=== PATIENT | male | born 1960 | race Caucasian/White ===

== ENCOUNTER 2016-08-12 13:57 | Inpatient (IN) | payer OTHER ==
[~2016-08-12] VITALS: Ht 182.9 cm; Wt 72.0 kg
[~2016-08-12 13:57] MED LIST: AMLODIPINE; ASPIRIN; CARV6.25 PO; COREG; LASIX; LISI10TA2 PO; LOSARTAN; LOVASTATIN; METF500T4 PO; METFORMIN
--- NOTE | 2016-08-12 14:15 | ERA ---
ER Documentation Chief Complaint Date/Time DATE: 08/12/16 TIME: 14:12 Chief Complaint Shortness of breath HPI The patient is a 56-year-old male, presenting to the ER because of acute on chronic shortness of breath for the last couple days. He complains of dyspnea on exertion. He complains of chronic left-sided chest pain 6 months after cardiac bypass surgery, however it is worse for the last couple of days. He denies fever, chills, cough, chest pain with vomiting or diaphoresis, denies abdominal pain, vomiting, dysuria, diarrhea. He complains of numbness of the left middle and fourth finger for 1 day. He smokes half a pack a day, denies drinking Past medical history: Diabetes mellitus, hypertension, dyslipidemia, CAD, cardiomyopathy, constipation Past surgical history: CABG, polypectomy ROS All systems reviewed and are negative except as per history of present illness. Medications Home Meds Reported Medications Multivitamins* (Theragran*) 1 Tab Tab, 1 TAB PO DAILY, TAB 08/12/16 Aspirin* (Aspirin* Chew) 81 Mg Tab.chew, 81 MG PO DAILY, TAB.CHEW 08/12/16 Broadbent-3 Acid Ethyl Esters (Lovaza) 1 Gm Capsule, 2 GM PO BID, CAP 08/12/16 Escitalopram Oxalate* (Escitalopram Oxalate*) 20 Mg Tablet, 20 MG PO DAILY, #30 TAB 08/12/16 Amlodipine Besylate* (Norvasc*) 5 Mg Tablet, 5 MG PO DAILY, TAB 08/12/16 Furosemide* (Furosemide*) 40 Mg Tablet, 40 MG PO DAILY, TAB 08/12/16 Metformin* (Glucophage*) 850 Mg Tablet, 850 MG PO WITH BREAKFAST DINNE, #30 TAB 08/12/16 Lovastatin* (Altoprev*) 40 Mg Tab.sr.24h, 40 MG PO HS, TAB 08/12/16 Losartan Potassium* (Losartan Potassium*) 50 Mg Tablet, 50 MG PO DAILY, TAB 08/12/16 Carvedilol* (Carvedilol*) 6.25 Mg Tablet, 6.25 MG PO DAILY, #60 TAB 08/12/16 Hydralazine Hcl* (Hydralazine Hcl*) 100 Mg Tablet, 100 MG PO Q8, #90 TAB 08/12/16 Clonidine Hcl* (Clonidine Hcl*) 0.1 Mg Tab, PO BID, TAB 08/12/16 Discontinued Reported Medications [Metformin] No Conflict Check 09/11/15 [Coreg] No Conflict Check 09/11/15 [Lovastatin] No Conflict Check 09/11/15 [Aspirin] No Conflict Check 09/11/15 [Lasix] No Conflict Check 09/11/15 [Losartan] No Conflict Check 09/11/15 [Amlodipine] No Conflict Check 09/11/15 Discontinued Scripts Metformin Hcl* (Metformin Hcl*) 500 Mg Tablet, 500 MG PO AC BREAKFAST DINNER, # 60 TAB Prov:ALEXANDRA TRIPATHI 06/22/14 Lisinopril* (Lisinopril*) 10 Mg Tablet, 10 MG PO DAILY, #30 TAB Prov:ALEXANDRA TRIPATHI 06/22/14 Carvedilol* (Coreg*) 6.25 Mg Tablet, 6.25 MG PO BID, #60 TAB Prov:ALEXANDRA TRIPATHI 06/22/14 Allergies Allergies: Coded Allergies: No Known Allergy (Unverified , 06/26/14) PMhx/Soc History of Surgery: Yes (CABG) Anesthesia Reaction: No Hx Neurological Disorder: No Hx Respiratory Disorders: Yes (CHRONIC BRONCHITIS) Hx Cardiac Disorders: Yes (CAD, HYPERLIPIDEMIA, CARDIOMYOPATHY, HTN) Hx Psychiatric Problems: No Hx Miscellaneous Medical Probl: No Hx Alcohol Use: No Hx Substance Use: No Hx Tobacco Use: Yes Physical Exam Vitals Vital Signs Date Time Temp Pulse Resp B/P Pulse Ox O2 Delivery O2 Flow Rate FiO2 08/12/16 16:39 73 20 188/77 100 Room Air 08/12/16 14:14 72 20 179/79 100 Room Air 08/12/16 14:06 98.0 74 20 200/89 98 Physical Exam Const: No acute distress. Head: Atraumatic. Eyes: Normal Conjunctiva. ENT: Normal External Ears, Nose and Mouth. Neck: Full range of motion. No meningismus. Resp: Bibasilar crackle Cardio: Regular rate and rhythm, no murmurs. Abd: Soft, non distended, normal bowel sounds, non tender. Skin: No petechiae or rashes. Back: No midline or flank tenderness. Ext: Bilateral lower extremity edema, no calf tenderness Neur: Awake and alert. No focal deficit Psych: Normal Mood and Affect. Result Diagram: 08/12/16 1432 08/12/16 1432 Results 24 hrs Laboratory Tests Test 08/12/16 14:32 White Blood Count 8.610^3/ul Red Blood Count 4.3210^6/ul Hemoglobin 11.2g/dl Hematocrit 34.3% Mean Corpuscular Volume 79.4fl Mean Corpuscular Hemoglobin 25.9pg Mean Corpuscular Hemoglobin Concent 32.7g/dl Red Cell Distribution Width 14.6% Platelet Count 90486^3/UL Mean Platelet Volume 11.7fl Neutrophils % 62.5% Lymphocytes % 23.3% Monocytes % 10.7% Eosinophils % 2.7% Basophils % 0.7% Nucleated Red Blood Cells % 0.0/100WBC Neutrophils # 5.410^3/ul Lymphocytes # 2.010^3/ul Monocytes # 0.910^3/ul Eosinophils # 0.210^3/ul Basophils # 0.110^3/ul Nucleated Red Blood Cells # 0.010^3/ul Prothrombin Time 12.1Sec Prothrombin Time Ratio 0.9 INR International Normalized Ratio 0.90 Activated Partial Thromboplast Time 31.8Sec Sodium Level 136mmol/L Potassium Level 4.6mmol/L Chloride Level 106mmol/L Carbon Dioxide Level 25mmol/L Anion Gap 10 Blood Urea Nitrogen 16mg/dl Creatinine 1.46mg/dl Glucose Level 143mg/dl Calcium Level 8.9mg/dl Total Bilirubin 0.4mg/dl Direct Bilirubin 0.00mg/dl Indirect Bilirubin 0.4mg/dl Aspartate Amino Transf (AST/SGOT) 17IU/L Alanine Aminotransferase (ALT/SGPT) 28IU/L Alkaline Phosphatase 90IU/L Troponin I 0.016ng/ml B-Type Natriuretic Peptide 2020PG/ML Total Protein 7.4g/dl Albumin 3.7g/dl Globulin 3.70g/dl Albumin/Globulin Ratio 1.00 Lipase 105U/L Current Medications Medications (Trade) Dose Ordered Sig/Myra Route PRN Reason Start Time Stop Time Status Last Admin Dose Admin Aspirin (Aspirin) 325 mg ONCE ONCE PO 08/12/16 15:00 08/12/16 15:01 DC Nitroglycerin (Nitroglycerin 2% Oint) 1 inch ONCE ONCE TD 08/12/16 15:00 08/12/16 15:01 DC 08/12/16 14:41 Furosemide (Lasix) 40 mg ONCE ONCE IV 08/12/16 16:00 08/12/16 16:01 DC 08/12/16 15:55 Procedures/MDM [place] [id number] Radiology Main Line: [phone] DIAGNOSTIC IMAGING REPORT Patient: PILLO GIMENEZ : 1960 Age: 56 Sex: M MR #: [id number] DOS: 08/12/16 1435 Ordering MD: PIERO HAUSER MD Location: E/R Room/Bed: PROCEDURE: XR Chest. CLINICAL INDICATION: Chest pain TECHNIQUE: Single frontal view of the chest was obtained COMPARISON: 06/28/14 FINDINGS: The heart is enlarged. The thoracic aorta is calcified. The patient is status post CABG. The lungs are clear. There is no pleural effusion or pneumothorax. RPTAT: AA IMPRESSION: Moderate cardiomegaly. Calcified aorta consistent with atherosclerotic disease. .Oj Roblero MD, MD Date Time Electronically viewed and signed by .Oj Roblero MD, MD on 08/12/2016 14: 54 .S/ CC: PIERO HAUSER MD EKG: Read by emergency physician Rate/Rhythm: Normal Sinus Rhythm 75 beats/min QRS, ST, T-waves: No ST elevation, no T inversion, lateral T abnormality Impression: Abnormal EKG MEDICAL MAKING DECISION: The patient is a 56-year-old male, presenting with acute CHF exacerbation, acute on chronic chest pain of unclear etiology. He was treated with Lasix 40 mg IV for acute CHF exacerbation, aspirin 325 mg p.o. and 1 inch of nitroglycerin ointment to the chest wall with good response. The differential diagnoses for acute on chronic chest pain considered include but are not limited to acute coronary syndrome, acute myocardial infarction, pericarditis, pulmonary embolism, aortic dissection, pneumonia, pleural effusion , pneumothorax, GERD, chest wall pain. The differential diagnoses for acute dyspnea considered include but are not limited to asthma, COPD, pneumonia, pulmonary embolus, pleural effusion, congestive heart failure. Departure Diagnosis: Primary Impression: CHF (congestive heart failure) Additional Impressions: Chest pain Anemia Condition: Stable Comments I discussed the findings with the patient. I discussed the patient with the on- call hospitalist Dr. Wright who was made aware of the lab, the treatment, the patient condition. The patient is admitted to telemetry at 4:10 PM PIERO HAUSER MD August 12, 2016 14:15
[2016-08-12 14:41] LABS: ADD SCAN DIFF NO
[2016-08-12 14:46] LABS: BASOPHIL # 0.1 10^3/ul (0.0-0.1); BASOPHILS % 0.7 % (0.0-2.0); EOSINOPHILS # 0.2 10^3/ul (0.0-0.5); EOSINOPHILS % 2.7 % (0.0-7.0); HEMATOCRIT 34.3 % (42.0-52.0); HEMOGLOBIN 11.2 g/dl (14.0-18.0); LYMPHOCYTES % 23.3 % (15.0-51.0); MEAN CORPUSCULAR HEMOGLOBIN 25.9 pg (29.0-33.0); MEAN CORPUSCULAR HGB CONC 32.7 g/dl (32.0-37.0); MEAN CORPUSCULAR VOLUME 79.4 fl (82.0-101.0); MEAN PLATELET VOLUME 11.7 fl (7.4-10.4); MONOCYTE # 0.9 10^3/ul (0.3-0.9); MONOCYTES % 10.7 % (0.0-11.0); NEUTROPHIL # 5.4 10^3/ul (1.6-7.5); NEUTROPHILS % 62.5 % (39.0-77.0); PLATELET COUNT 251 10^3/UL (140-415); RED BLOOD COUNT 4.32 10^6/ul (4.70-6.10); RED CELL DISTRIBUTION WIDTH 14.6 % (11.5-14.5); WHITE BLOOD COUNT 8.6 10^3/ul (4.8-10.8)
[2016-08-12] MEDS ORDERED: HYDR100T7 PO (14:47)
[2016-08-12] MEDS ORDERED: CLON-379 PO (14:47)
[2016-08-12] MEDS ORDERED: CARV6.2579 PO (14:48)
[2016-08-12] MEDS ORDERED: LOSA50TA6 PO (14:48)
[2016-08-12] MEDS ORDERED: LOVA40TA64 PO (14:49)
[2016-08-12] MEDS ORDERED: METF-480 PO (14:49)
[2016-08-12] MEDS ORDERED: FURO40TA4 PO (14:49)
[2016-08-12] MEDS ORDERED: AMLO5TAB4 PO (14:50)
[2016-08-12] MEDS ORDERED: OMEG1CAP2 PO (14:51)
[2016-08-12] MEDS ORDERED: ESCI20TA38 PO (14:51)
[2016-08-12] MEDS ORDERED: MULTI PO (14:52)
[2016-08-12] MEDS ORDERED: ASPI81TA3 PO (14:52)
--- NOTE | 2016-08-12 14:54 | RADRPT ---
PROCEDURE: XR Chest. CLINICAL INDICATION: Chest pain TECHNIQUE: Single frontal view of the chest was obtained COMPARISON: 06/28/14 FINDINGS: The heart is enlarged. The thoracic aorta is calcified. The patient is status post CABG. The lungs are clear. There is no pleural effusion or pneumothorax. RPTAT: AA IMPRESSION: Moderate cardiomegaly. Calcified aorta consistent with atherosclerotic disease. .Oj Roblero MD, MD Date Time Electronically viewed and signed by .Oj Roblero MD, on 08/12/2016 14:54 .S/
[2016-08-12 15:00] LABS: INR 0.9; PROTIME 12.1 Sec (12.2-14.2); PT RATIO 0.9
[2016-08-12] MEDS ORDERED: ASPIRIN 325 MG TAB PO ONE (15:00)
[2016-08-12] MEDS ORDERED: NITROGLYCERIN 2% 1 GM OINT PKT TD ONE (15:00)
[2016-08-12 15:01] LABS: PARTIAL THROMBOPLASTIN TIME 31.8 Sec (25.0-35.0)
[2016-08-12 15:03] LABS: ALBUMIN 3.7 g/dl (3.3-4.9); BILIRUBIN,INDIRECT 0.4 mg/dl (0-1.1); BILIRUBIN,TOTAL 0.4 mg/dl (0.2-1.3); CALCIUM 8.9 mg/dl (8.4-10.2); CREATININE 1.46 mg/dl (0.61-1.24); POTASSIUM 4.6 mmol/L (3.5-5.1); TOTAL PROTEIN 7.4 g/dl (6.1-8.1)
[2016-08-12 15:14] LABS: TROPONIN-I 0.016 ng/ml (0.00-0.12)
[2016-08-12] MEDS ORDERED: FUROSEMIDE 40 MG INJ IV ONE (16:00)
[2016-08-12] MEDS ORDERED: NITROGLYCERIN (SL) 0.4 MG TAB SL PRN (18:30)
[2016-08-12] MEDS ORDERED: ACETAMINOPHEN 325 MG TAB PO PRN (18:30)
[2016-08-12] MEDS ORDERED: DOCUSATE SODIUM 100 MG CAP PO PRN (18:30)
[2016-08-12] MEDS ORDERED: HYDROCODONE/APAP (5/325) TAB PO PRN (18:30)
[2016-08-12] MEDS ORDERED: MAGNESIUM HYDROXIDE 30ML CUP PO PRN (18:30)
[2016-08-12] MEDS ORDERED: ALBUTEROL/IPRATROPIUM (NEB) 3 ML AMP HHN PRN (18:30)
[2016-08-12] MEDS ORDERED: LORAZEPAM 2 MG INJ IV PRN (18:30)
[2016-08-12] MEDS ORDERED: NA PHOSPHATE/BIPHOS 133 ML ENEMA PR PRN (18:30)
[2016-08-12] MEDS ORDERED: morphine 2 MG INJ IV PRN (18:30)
[2016-08-12] MEDS ORDERED: hydrALAzine 20 MG INJ IV PRN (18:30)
[2016-08-12] MEDS ORDERED: NACL 0.9% 3 ML SYG IV SCH (18:30)
[2016-08-12] MEDS ORDERED: ONDANSETRON 4 MG INJ IV PRN (18:30)
[2016-08-12] MEDS ORDERED: GLUCOSE GEL 15 GRAM TUBE PO PRN ×2 (19:00)
[2016-08-12] MEDS ORDERED: DEXTROSE 50% 50 ML SYRINGE IV PRN ×2 (19:00)
[2016-08-12] MEDS ORDERED: GLUCOSE GEL 15 GRAM TUBE BUCCAL PRN (19:00)
[2016-08-12] MEDS ORDERED: GLUCAGON 1 MG INJ IM PRN (19:00)
[2016-08-12] MEDS: LEVOFLOXACIN 750MG/D5W (PMX) 150 ML IVPB SCH (19:27)
[2016-08-12] MEDS: NICOTINE (14 MG/24 HR) PATCH TRANSDERM SCH (19:28)
[2016-08-12] MEDS: FISH OIL 1,000 MG CAP PO SCH (20:20)
[2016-08-12] MEDS: FAMOTIDINE 20 MG TAB PO SCH (20:21)
[2016-08-12 20:27] VITALS: PULSE 79
[2016-08-12] MEDS: HEPARIN 5,000 UNIT/0.5 ML VIAL SC SCH (20:28)
--- NOTE | 2016-08-12 20:29 | HP ---
DATE OF ADMISSION: 08/12/2016 CHIEF COMPLAINT: Chest pain. HISTORY OF PRESENT ILLNESS: A 56-year-old male with a past medical history of coronary artery bypas s grafting 2 years ago, coronary artery disease, cardiomyopathy, constipation, essential hypertensio n, type 2 diabetes, high cholesterol who has been having chest pain. It's actually been going on, joan adam says, for the last few months but getting progressively worse over the last 2 days. He is also couch ving dyspnea on exertion. He has had shortness of breath symptoms. No fevers or chills. No nausea , vomiting. No upper, lower GI bleeding. No dysuria. No headaches or dizziness. No productive co ugh. He has been having left hand numbness, however, for the last 1 day. He still smokes half a pa ck of cigarettes a day. He has been doing that for the last 30 years. When he came to the ER today , he was found with elevated BNP level up to around 2000 range, and his chest x-ray did show signs o f vascular congestion, and he did require BiPAP briefly in the ER as well today. The patient says joan adam has been compliant with his medications. He says he was at [facility] [address] pain. He stayed there for 1-1/2 days. He apparently had some kind of arrhythmia at that time an d was transferred to the ICU. They recommended left heart catheterization, but the patient left AMA at that time. PAST MEDICAL HISTORY: As stated above. ALLERGIES: NO KNOWN DRUG ALLERGIES. HOME MEDICINES: 1. Norvasc 5 mg daily. 2. Coreg 6.25 mg daily. 3. Clonidine 0.1 mg. 4. Hydralazine 100 mg q.8 hours. 5. Losartan 50 mg daily. 6. Lovastatin 40 mg at bedtime. 7. Lovaza 2 grams p.o. b.i.d. 8. Aspirin 81 mg daily. 9. Lexapro 20 mg daily. 10. Lasix 40 mg daily. 11. Metformin 850 mg b.i.d. 12. Multivitamin 1 tablet daily. PAST SURGICAL HISTORY: Again, he had bypass surgery in the past and also had some kind of polypecto my in the past. SOCIAL HISTORY: Again, he smokes half pack of cigarettes a day for the last 30 years. Denies any a lcohol use or IV drug abuse. FAMILY HISTORY: Noncontributory. PHYSICAL EXAMINATION: VITAL SIGNS: T-max 98.0, pulse 72, respirations 20, blood pressure is 179 to 200 systolic over 79 t o 89 diastolic, saturating at 100% on room air. GENERAL: The patient lying in bed, appears somewhat lethargic but alert, answering questions. HEENT: Pupils equal, round, react to light. Extraocular muscles intact. NECK: Supple. No thyromegaly. LUNGS: Bibasilar crackles heard at the bases bilaterally. CARDIOVASCULAR: S1, S2 heard. No rubs or gallops. ABDOMEN: Soft, nontender, nondistended. Normal bowel sounds. No rebound or guarding. MUSCULOSKELETAL: 1+ pitting edema, bilateral lower extremities to the mid calves. NEUROLOGIC: No focal deficits. LABORATORIES: CBC is normal. Comprehensive metabolic panel is normal except a creatinine is 1.46. BNP is 2020. Lipase is normal. Coagulation studies are normal. IMAGING: Chest x-ray again shows moderate cardiomegaly, calcified aorta consistent with atheroscler otic disease. ASSESSMENT AND PLAN: A 56-year-old male coming in with chest pain symptoms, shortness of breath, si gns of rule out acute coronary syndrome plus CHF exacerbation. 1. Shortness of breath and chest pain. Again, admit the patient to telemetry floor, rule him out f or acute coronary syndrome. Check his troponins q.6 hours x3. Aspirin, morphine, oxygen, nitrates. Check TSH, A1c, lipid panel. Check 2D echocardiogram as well. Get cardiology consult given his h istory of coronary artery disease and CABG in the past. Continue low-dose beta silvia for now, IV Lasix. Elevate head of the bed greater than 30 degrees. Monitor ins and outs for CHF exacerbation. 2. Type 2 diabetes. Check A1c, put him on sliding scale insulin. 3. Smoking history. Put him on nicotine patch, pet adoption counselor regarding tobacco cessation. 4. Essential hypertension. See #1. 5. Gastrointestinal prophylaxis. H2 silvia. 6. Deep venous thrombosis prophylaxis. Heparin subcutaneously. Dictated By: CHRISTINA SAUL/RICH Conf#: [id number] DID#: [id number]
[2016-08-12 20:45] LABS: CK-MB 0.81 ng/ml (0.0-2.4); TROPONIN-I 0.017 ng/ml (0.00-0.12)
[2016-08-12 21:00] VITALS: Ht 182.9 cm; Wt 72.0 kg
[2016-08-12] MEDS ORDERED: INSULIN ASPART [NOVOLOG] 3 ML PEN SC SCH (21:00)
[2016-08-12] MEDS ORDERED: ATORVASTATIN 10 MG TAB PO SCH (21:00)
[2016-08-12 23:54] VITALS: BP 139/63; RESP 19
[2016-08-13] VITALS (12 sets, daily range): BP systolic 122–199; BP diastolic 59–92; PULSE 67–89; RESP 18–20
[2016-08-13 01:52] LABS: TROPONIN-I 0.021 ng/ml (0.00-0.12)
[2016-08-13 01:59] LABS: CK-MB 0.79 ng/ml (0.0-2.4)
[2016-08-13 03:36] LABS: CK-MB 0.7 ng/ml (0.0-2.4)
[2016-08-13 03:39] LABS: TROPONIN-I 0.021 ng/ml (0.00-0.12)
[2016-08-13] MEDS: INSULIN ASPART [NOVOLOG] 3 ML PEN SC SCH ×4 (05:40→23:28)
[2016-08-13 07:59] LABS: ADD SCAN DIFF NO
[2016-08-13 08:03] LABS: CHOL/HDL RATIO 7.7 RATIO
[2016-08-13] MEDS: MULTIVITAMINS THERAPEUTIC TAB PO SCH (08:23)
[2016-08-13] MEDS: ESCITALOPRAM 10 MG TAB PO SCH (08:23)
[2016-08-13] MEDS: FAMOTIDINE 20 MG TAB PO SCH ×2 (08:23→20:02)
[2016-08-13] MEDS: ASPIRIN (EC) 325 MG TAB PO SCH (08:23)
[2016-08-13] MEDS: FISH OIL 1,000 MG CAP PO SCH ×2 (08:23→20:02)
[2016-08-13] MEDS: NICOTINE (14 MG/24 HR) PATCH TRANSDERM SCH (08:24)
[2016-08-13] MEDS: HEPARIN 5,000 UNIT/0.5 ML VIAL SC SCH ×2 (08:25→20:13)
[2016-08-13 08:32] LABS: THYROID STIMULATING HORMONE 1.44 MIU/L (0.465-4.680)
[2016-08-13 08:37] LABS: BASOPHIL # 0.1 10^3/ul (0.0-0.1); BASOPHILS % 0.7 % (0.0-2.0); EOSINOPHILS # 0.3 10^3/ul (0.0-0.5); EOSINOPHILS % 3.6 % (0.0-7.0); HEMATOCRIT 32.9 % (42.0-52.0); HEMOGLOBIN 10.7 g/dl (14.0-18.0); LYMPHOCYTES # 2.3 10^3/ul (0.8-2.9); LYMPHOCYTES % 25.6 % (15.0-51.0); MEAN CORPUSCULAR HEMOGLOBIN 26.1 pg (29.0-33.0); MEAN CORPUSCULAR HGB CONC 32.5 g/dl (32.0-37.0); MEAN CORPUSCULAR VOLUME 80.2 fl (82.0-101.0); MEAN PLATELET VOLUME 12.5 fl (7.4-10.4); MONOCYTES % 11.3 % (0.0-11.0); NEUTROPHIL # 5.2 10^3/ul (1.6-7.5); NEUTROPHILS % 58.6 % (39.0-77.0); PLATELET COUNT 228 10^3/UL (140-415); RED CELL DISTRIBUTION WIDTH 14.6 % (11.5-14.5); WHITE BLOOD COUNT 8.8 10^3/ul (4.8-10.8)
[2016-08-13] MEDS ORDERED: FUROSEMIDE 40 MG INJ IV SCH (09:00)
[2016-08-13 09:52] LABS: POTASSIUM 3.9 mmol/L (3.5-5.1)
[2016-08-13 09:55] LABS: CREATININE 1.57 mg/dl (0.61-1.24)
[2016-08-13 09:56] LABS: CALCIUM 8.6 mg/dl (8.4-10.2); MAGNESIUM 1.9 mg/dl (1.7-2.5); PHOSPHORUS 4.1 mg/dl (2.5-4.9)
--- NOTE | 2016-08-13 12:28 | PN ---
Date/Time of Note Date/Time of Note DATE: 08/13/16 TIME: 12:26 Assessment/Plan VTE Prophylaxis VTE Prophylaxis Intervention: heparin Lines/Catheters IV [facility] Urinary Cath still in place: No Assessment/Plan Chief Complaint/Hosp Course ASSESSMENT AND PLAN: 56-year-old male coming in with chest pain symptoms, shortness of breath, signs of rule out acute coronary syndrome plus CHF exacerbation. 1. Shortness of breath and chest pain - pt with Hx of CABG - Again rule him out for acute coronary syndrome. F/u troponins q.6 hours x3. - Aspirin, morphine, oxygen, nitrates. f/u TSH, A1c, lipid panel. - f/u echocardiogram as well. - f/u cardiology consult given his history of coronary artery disease and CABG in the past. - Continue low-dose beta silvia for now, IV Lasix. - Elevate head of the bed greater than 30 degrees. - Monitor ins and outs 2. Type 2 diabetes - f/u A1c, sliding scale insulin. 3. 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 4. Essential hypertension. See #1. 5. Gastrointestinal prophylaxis. H2 silvia. 6. Deep venous thrombosis prophylaxis. Heparin subcutaneously. Problems: Subjective 24 Hr Interval Summary Free Text/Dictation Pt has less cp, awaiting CV consult. Exam/Review of Systems Vital Signs Vitals Vital Signs Date Time Temp Pulse Resp B/P Pulse Ox O2 Delivery O2 Flow Rate FiO2 08/13/16 11:27 98.0 71 20 175/87 93 08/13/16 08:20 Nasal Cannula 2.0 Intake and Output 08/12/16 08/12/16 08/13/16 15:00 23:00 07:00 Intake Total 150 ml Output Total 450 ml Balance -300 ml Exam GENERAL: The patient lying in bed, appears somewhat lethargic but alert, answering questions. HEENT: Pupils equal, round, react to light. Extraocular muscles intact. NECK: Supple. No thyromegaly. LUNGS: Bibasilar crackles heard at the bases bilaterally. CARDIOVASCULAR: S1, S2 heard. No rubs or gallops. ABDOMEN: Soft, nontender, nondistended. Normal bowel sounds. No rebound or guarding. MUSCULOSKELETAL: 1+ pitting edema, bilateral lower extremities to the mid calves. NEUROLOGIC: No focal deficits. Results Result Diagram: 08/13/16 0645 08/13/16 0645 Results 24 hrs Laboratory Tests Test 08/12/16 14:32 08/12/16 19:55 08/12/16 20:29 08/13/16 00:30 White Blood Count 8.6 Red Blood Count 4.32 #L Hemoglobin 11.2 #L Hematocrit 34.3 #L Mean Corpuscular Volume 79.4 L Mean Corpuscular Hemoglobin 25.9 L Mean Corpuscular Hemoglobin Concent 32.7 Red Cell Distribution Width 14.6 H Platelet Count 251 Mean Platelet Volume 11.7 #H Neutrophils % 62.5 Lymphocytes % 23.3 Monocytes % 10.7 Eosinophils % 2.7 Basophils % 0.7 Nucleated Red Blood Cells % 0.0 Neutrophils # 5.4 Lymphocytes # 2.0 Monocytes # 0.9 Eosinophils # 0.2 Basophils # 0.1 Nucleated Red Blood Cells # 0.0 Prothrombin Time 12.1 L Prothrombin Time Ratio 0.9 INR International Normalized Ratio 0.90 Activated Partial Thromboplast Time 31.8 Sodium Level 136 Potassium Level 4.6 Chloride Level 106 Carbon Dioxide Level 25 Anion Gap 10 Blood Urea Nitrogen 16 Creatinine 1.46 H Glucose Level 143 Calcium Level 8.9 Total Bilirubin 0.4 Direct Bilirubin 0.00 Indirect Bilirubin 0.4 Aspartate Amino Transf (AST/SGOT) 17 Alanine Aminotransferase (ALT/SGPT) 28 Alkaline Phosphatase 90 Troponin I 0.016 0.017 0.021 B-Type Natriuretic Peptide 2020 H Total Protein 7.4 Albumin 3.7 Globulin 3.70 H Albumin/Globulin Ratio 1.00 Lipase 105 Free Thyroxine 1.10 Creatine Kinase 84 81 Creatine Kinase Index 1.0 1.0 Creatinine Kinase MB (Mass) 0.81 0.79 Bedside Glucose 248 H Test 08/13/16 02:48 08/13/16 05:38 08/13/16 06:45 08/13/16 11:48 Creatine Kinase 65 Creatine Kinase Index 1.1 Creatinine Kinase MB (Mass) 0.70 Troponin I 0.021 Bedside Glucose 114 158 White Blood Count 8.8 Red Blood Count 4.10 L Hemoglobin 10.7 L Hematocrit 32.9 L Mean Corpuscular Volume 80.2 L Mean Corpuscular Hemoglobin 26.1 L Mean Corpuscular Hemoglobin Concent 32.5 Red Cell Distribution Width 14.6 H Platelet Count 228 Mean Platelet Volume 12.5 H Neutrophils % 58.6 Lymphocytes % 25.6 Monocytes % 11.3 H Eosinophils % 3.6 Basophils % 0.7 Nucleated Red Blood Cells % 0.0 Neutrophils # 5.2 Lymphocytes # 2.3 Monocytes # 1.0 H Eosinophils # 0.3 Basophils # 0.1 Nucleated Red Blood Cells # 0.0 Sodium Level 138 Potassium Level 3.9 Chloride Level 106 Carbon Dioxide Level 21 Anion Gap 15 Blood Urea Nitrogen 21 H Creatinine 1.57 H Glucose Level 106 Hemoglobin A1c 7.6 H Calcium Level 8.6 Phosphorus Level 4.1 Magnesium Level 1.9 Triglycerides Level 173 H Cholesterol Level 248 H LDL Cholesterol, Calculated 181 HDL Cholesterol 32 Cholesterol/HDL Ratio 7.7 Thyroid Stimulating Hormone (TSH) 1.440 Medications Medications Current Medications Ondansetron HCl (Zofran Inj) 4 mg Q6H PRN IV NAUSEA AND/OR VOMITING; Start 08/12 at 18:30 Acetaminophen (Tylenol Tab) 650 mg Q6H PRN PO PAIN LEVEL 1-3 OR FEVER; Start at 18:30 Acetaminophen/ Hydrocodone Bitart ([place] (5/325)) 1 tab Q6H PRN PO MODERATE PAIN LEVEL 4-6; Start 08/12/16 at 18:30 Morphine Sulfate (morphine) 2 mg Q4H PRN IV SEVERE PAIN LEVEL 7-10 Last administered on 08/12/16 21:44; Admin Dose 2 MG; Start 08/12/16 at 18:30 Docusate Sodium (Colace) 100 mg Q12H PRN PO CONSTIPATION; Start 08/12/16 at 18: 30 Magnesium Hydroxide (Milk Of Mag) 30 ml DAILY PRN PO CONSTIPATION; Start at 18:30 Sodium Biphosphate/ Sodium Phosphate (Fleet Enema) 133 ml DAILY PRN OR CONSTIPATION; Start 08/12/16 at 18:30 Famotidine (Pepcid) 20 mg Q12 PO Last administered on 08/13/16 08:23; Admin Dose 20 MG; Start 08/12/16 at 21:00 Heparin Sodium (Porcine) (Heparin (5000 Units/0.5 ml)) 5,000 unit Q12 SC Last administered on 08/13/16 08:25; Admin Dose 5,000 UNIT; Start 08/12/16 at 21:00 Lorazepam 0.5 mg 0.5 mg Q6H PRN IV ANXIETY; Start 08/12/16 at 18:30 Levofloxacin/ Dextrose (Levaquin 750 Mg/ D5W 150 ml (Pmx)) 150 ml @ 100 mls/hr Q24H IVPB Last administered on 08/12/16 19:27; Admin Dose 100 MLS/HR; Start 08/12/16 at 20:00 Hydralazine HCl (Apresoline) 10 mg Q6H PRN IV ELEVATED BLOOD PRESSURE Last administered on 08/12/16 20:21; Admin Dose 10 MG; Start 08/12/16 at 18:30 Clonidine (Catapres) 0.1 mg Q6H PRN PO ELEVATED BLOOD PRESSURE Last administered on 08/13/16 12:01; Admin Dose 0.1 MG; Start 08/12/16 at 18:30 Nitroglycerin (Nitroglycerin (Sl Tab) 0.4 Mg) 1 tab Q5M PRN SL ANGINA; Start at 18:30 Aspirin (Ecotrin) 325 mg DAILY PO Last administered on 08/13/16 08:23; Admin Dose 325 MG; Start 08/13/16 at 09:00 Escitalopram Oxalate (Lexapro) 20 mg DAILY PO Last administered on 08/13/16 08 :23; Admin Dose 20 MG; Start 08/13/16 at 09:00 Multivitamins Therapeutic (Theragran) 1 tab DAILY PO Last administered on 08:23; Admin Dose 1 TAB; Start 08/13/16 at 09:00 Atorvastatin Calcium (Lipitor) 10 mg HS PO Last administered on 08/12/16 20:20 ; Admin Dose 10 MG; Start 08/12/16 at 21:00 Fish Oil (Fish Oil) 2,000 mg BID PO Last administered on 08/13/16 08:23; Admin Dose 2,000 MG; Start 08/12/16 at 21:00 Furosemide (Lasix) 40 mg DAILY IV Last administered on 08/13/16 08:24; Admin Dose 40 MG; Start 08/13/16 at 09:00 Carvedilol (Coreg) 3.125 mg BID PO Last administered on 08/13/16 08:24; Admin Dose 3.125 MG; Start 08/12/16 at 21:00 Miscellaneous Information 1 ea NOTE XX ; Start 08/12/16 at 19:00 Glucose (Glutose) 15 gm Q15M PRN PO DECREASED GLUCOSE; Start 08/12/16 at 19:00 Glucose (Glutose) 22.5 gm Q15M PRN PO DECREASED GLUCOSE; Start 08/12/16 at 19:00 Dextrose (D50w Syringe) 25 ml Q15M PRN IV DECREASED GLUCOSE; Start 08/12/16 at 19:00 Dextrose (D50w Syringe) 50 ml Q15M PRN IV DECREASED GLUCOSE; Start 08/12/16 at 19:00 Glucagon (Glucagen) 1 mg Q15M PRN IM DECREASED GLUCOSE; Start 08/12/16 at 19:00 Glucose (Glutose) 15 gm Q15M PRN BUCCAL DECREASED GLUCOSE; Start 08/12/16 at 19: 00 Nicotine (Nicoderm 14 Mg/ 24hr) 1 patch DAILY TRANSDERM Last administered on 08:24; Admin Dose 1 PATCH; Start 08/12/16 at 19:00 Insulin Aspart (Novolog Insulin Pen) NOVOLOG *MILD* ALGORI... Q6 SC Last administered on 08/13/16 12:04; Admin Dose 1 UNIT; Start 08/13/16 at 06:00 CHRISTINA DREW August 13, 2016 12:28
--- NOTE | 2016-08-13 13:29 | CONS ---
Date/Time of Note Date/Time of Note DATE: 08/13/16 TIME: 13:20 Assessment/Plan Assessment/Plan Additional Assessment/Plan Chest wall pain Left arm numbness Hypertension, uncontrolled Coronary artery disease with history of CABG Cardiomyopathy -Patient with multiple complaints including left axillary pain, unable to move his fingers on his left hand, hypertension and issues with his bowels. His chest pain appears like chest wall pain which has been ongoing since he had his CABG. Serial cardiac enzymes with no significant abnormalities. His blood pressure is currently uncontrolled, I would increase his Coreg, restart Norvasc twice daily. Continue aspirin and statin therapy. Echocardiogram is pending. Would consider neurology evaluation. Consultation Date/Type/Reason Admit Date/Time August 12, 2016 at 16:14 Type of Consultation: cv Reason for Consultation Arm numbness, chest pain, shortness of breath Hx of Present Illness This is a 56-year-old male with past medical history of coronary artery disease status post CABG, cardiomyopathy, hypertension who presents to the emergency room with multiple complaints. Patient complains of chest wall pain in the left axillary region. This is pain he has been having since he had bypass surgery. Pain is sharp at times and needlelike at other times. Pain is worse with lifting up his left arm. Patient cannot lie on his left side because of the pain. He also complains of hypertension every morning. His blood pressures above 200 every morning and it takes him over 1 hour to bring his blood pressure down. He tells any process foods increases his blood pressure, salad is the only food which helps his chest pain and elevated blood pressure. He complains of shortness of breath worse in the morning and improve as the day goes on. His activity has been very limited since he had his bypass surgery because of his chronic pain. He also complains now of numbness in his fourth and fifth finger. This began on Thursday. This is not associated with his chest wall discomfort. Because of the worsening numbness, he came to the emergency room for evaluation and care. His hand numbness has improved and currently localized only to his fifth finger. He denies any fevers or chills. He does complain of constipation going on for years. 12 point review of systems was performed with all pertinent positives and negatives mentioned above and all else is negative Past Medical History Medical History: congestive heart failure, coronary artery disease, high cholesterol, hypertension Past Surgical History Past Surgical Hx: coronary bypass surgery Family History Significant Family History: no pertinent family hx Social History Alcohol Use: none Smoking Status: Current every day smoker Other Social History Lives at home Exam/Review of Systems Vital Signs Vitals Vital Signs Date Time Temp Pulse Resp B/P Pulse Ox O2 Delivery O2 Flow Rate FiO2 08/13/16 12:12 74 08/13/16 11:27 98.0 20 175/87 93 08/13/16 08:20 Nasal Cannula 2.0 Intake and Output 08/12/16 08/12/16 08/13/16 14:59 22:59 06:59 Intake Total 150 ml Output Total 450 ml Balance -300 ml Exam No apparent distress, following commands Constitutional: alert, oriented Head: normocephalic Neck: supple Respiratory: other (Coarse breath sounds bilaterally, no wheezing) Cardiovascular: other (S1-S2 heard), regular rate and rhythm, systolic murmur Gastrointestinal: bowel sounds, non-tender, other (No guarding), soft Extremities: other (No edema or cyanosis) Results Result Diagram: 08/13/16 0645 08/13/16 0645 Results 24 hrs Laboratory Tests Test 08/12/16 14:32 08/12/16 19:55 08/12/16 20:29 08/13/16 00:30 White Blood Count 8.6 Red Blood Count 4.32 #L Hemoglobin 11.2 #L Hematocrit 34.3 #L Mean Corpuscular Volume 79.4 L Mean Corpuscular Hemoglobin 25.9 L Mean Corpuscular Hemoglobin Concent 32.7 Red Cell Distribution Width 14.6 H Platelet Count 251 Mean Platelet Volume 11.7 #H Neutrophils % 62.5 Lymphocytes % 23.3 Monocytes % 10.7 Eosinophils % 2.7 Basophils % 0.7 Nucleated Red Blood Cells % 0.0 Neutrophils # 5.4 Lymphocytes # 2.0 Monocytes # 0.9 Eosinophils # 0.2 Basophils # 0.1 Nucleated Red Blood Cells # 0.0 Prothrombin Time 12.1 L Prothrombin Time Ratio 0.9 INR International Normalized Ratio 0.90 Activated Partial Thromboplast Time 31.8 Sodium Level 136 Potassium Level 4.6 Chloride Level 106 Carbon Dioxide Level 25 Anion Gap 10 Blood Urea Nitrogen 16 Creatinine 1.46 H Glucose Level 143 Calcium Level 8.9 Total Bilirubin 0.4 Direct Bilirubin 0.00 Indirect Bilirubin 0.4 Aspartate Amino Transf (AST/SGOT) 17 Alanine Aminotransferase (ALT/SGPT) 28 Alkaline Phosphatase 90 Troponin I 0.016 0.017 0.021 B-Type Natriuretic Peptide 2020 H Total Protein 7.4 Albumin 3.7 Globulin 3.70 H Albumin/Globulin Ratio 1.00 Lipase 105 Free Thyroxine 1.10 Creatine Kinase 84 81 Creatine Kinase Index 1.0 1.0 Creatinine Kinase MB (Mass) 0.81 0.79 Bedside Glucose 248 H Test 08/13/16 02:48 08/13/16 05:38 08/13/16 06:45 08/13/16 11:48 Creatine Kinase 65 Creatine Kinase Index 1.1 Creatinine Kinase MB (Mass) 0.70 Troponin I 0.021 Bedside Glucose 114 158 White Blood Count 8.8 Red Blood Count 4.10 L Hemoglobin 10.7 L Hematocrit 32.9 L Mean Corpuscular Volume 80.2 L Mean Corpuscular Hemoglobin 26.1 L Mean Corpuscular Hemoglobin Concent 32.5 Red Cell Distribution Width 14.6 H Platelet Count 228 Mean Platelet Volume 12.5 H Neutrophils % 58.6 Lymphocytes % 25.6 Monocytes % 11.3 H Eosinophils % 3.6 Basophils % 0.7 Nucleated Red Blood Cells % 0.0 Neutrophils # 5.2 Lymphocytes # 2.3 Monocytes # 1.0 H Eosinophils # 0.3 Basophils # 0.1 Nucleated Red Blood Cells # 0.0 Sodium Level 138 Potassium Level 3.9 Chloride Level 106 Carbon Dioxide Level 21 Anion Gap 15 Blood Urea Nitrogen 21 H Creatinine 1.57 H Glucose Level 106 Hemoglobin A1c 7.6 H Calcium Level 8.6 Phosphorus Level 4.1 Magnesium Level 1.9 Triglycerides Level 173 H Cholesterol Level 248 H LDL Cholesterol, Calculated 181 HDL Cholesterol 32 Cholesterol/HDL Ratio 7.7 Thyroid Stimulating Hormone (TSH) 1.440 Medications Medications Current Medications Ondansetron HCl (Zofran Inj) 4 mg Q6H PRN IV NAUSEA AND/OR VOMITING; Start 08/12 at 18:30 Acetaminophen (Tylenol Tab) 650 mg Q6H PRN PO PAIN LEVEL 1-3 OR FEVER; Start at 18:30 Acetaminophen/ Hydrocodone Bitart ([place] (5/325)) 1 tab Q6H PRN PO MODERATE PAIN LEVEL 4-6; Start 08/12/16 at 18:30 Morphine Sulfate (morphine) 2 mg Q4H PRN IV SEVERE PAIN LEVEL 7-10 Last administered on 08/12/16 21:44; Admin Dose 2 MG; Start 08/12/16 at 18:30 Docusate Sodium (Colace) 100 mg Q12H PRN PO CONSTIPATION; Start 08/12/16 at 18: 30 Magnesium Hydroxide (Milk Of Mag) 30 ml DAILY PRN PO CONSTIPATION; Start at 18:30 Sodium Biphosphate/ Sodium Phosphate (Fleet Enema) 133 ml DAILY PRN [place] CONSTIPATION; Start 08/12/16 at 18:30 Famotidine (Pepcid) 20 mg Q12 PO Last administered on 08/13/16 08:23; Admin Dose 20 MG; Start 08/12/16 at 21:00 Heparin Sodium (Porcine) (Heparin (5000 Units/0.5 ml)) 5,000 unit Q12 SC Last administered on 08/13/16 08:25; Admin Dose 5,000 UNIT; Start 08/12/16 at 21:00 Lorazepam 0.5 mg 0.5 mg Q6H PRN IV ANXIETY; Start 08/12/16 at 18:30 Levofloxacin/ Dextrose (Levaquin 750 Mg/ D5W 150 ml (Pmx)) 150 ml @ 100 mls/hr Q24H IVPB Last administered on 08/12/16 19:27; Admin Dose 100 MLS/HR; Start 08/12/16 at 20:00 Hydralazine HCl (Apresoline) 10 mg Q6H PRN IV ELEVATED BLOOD PRESSURE Last administered on 08/12/16 20:21; Admin Dose 10 MG; Start 08/12/16 at 18:30 Clonidine (Catapres) 0.1 mg Q6H PRN PO ELEVATED BLOOD PRESSURE Last administered on 08/13/16 12:01; Admin Dose 0.1 MG; Start 08/12/16 at 18:30 Nitroglycerin (Nitroglycerin (Sl Tab) 0.4 Mg) 1 tab Q5M PRN SL ANGINA; Start at 18:30 Aspirin (Ecotrin) 325 mg DAILY PO Last administered on 08/13/16 08:23; Admin Dose 325 MG; Start 08/13/16 at 09:00 Escitalopram Oxalate (Lexapro) 20 mg DAILY PO Last administered on 08/13/16 08 :23; Admin Dose 20 MG; Start 08/13/16 at 09:00 Multivitamins Therapeutic (Theragran) 1 tab DAILY PO Last administered on 08:23; Admin Dose 1 TAB; Start 08/13/16 at 09:00 Atorvastatin Calcium (Lipitor) 10 mg HS PO Last administered on 08/12/16 20:20 ; Admin Dose 10 MG; Start 08/12/16 at 21:00 Fish Oil (Fish Oil) 2,000 mg BID PO Last administered on 08/13/16 08:23; Admin Dose 2,000 MG; Start 08/12/16 at 21:00 Furosemide (Lasix) 40 mg DAILY IV Last administered on 08/13/16 08:24; Admin Dose 40 MG; Start 08/13/16 at 09:00 Carvedilol (Coreg) 3.125 mg BID PO Last administered on 08/13/16 08:24; Admin Dose 3.125 MG; Start 08/12/16 at 21:00 Miscellaneous Information 1 ea NOTE XX ; Start 08/12/16 at 19:00 Glucose (Glutose) 15 gm Q15M PRN PO DECREASED GLUCOSE; Start 08/12/16 at 19:00 Glucose (Glutose) 22.5 gm Q15M PRN PO DECREASED GLUCOSE; Start 08/12/16 at 19:00 Dextrose (D50w Syringe) 25 ml Q15M PRN IV DECREASED GLUCOSE; Start 08/12/16 at 19:00 Dextrose (D50w Syringe) 50 ml Q15M PRN IV DECREASED GLUCOSE; Start 08/12/16 at 19:00 Glucagon (Glucagen) 1 mg Q15M PRN IM DECREASED GLUCOSE; Start 08/12/16 at 19:00 Glucose (Glutose) 15 gm Q15M PRN BUCCAL DECREASED GLUCOSE; Start 08/12/16 at 19: 00 Nicotine (Nicoderm 14 Mg/ 24hr) 1 patch DAILY TRANSDERM Last administered on 08:24; Admin Dose 1 PATCH; Start 08/12/16 at 19:00 Insulin Aspart (Novolog Insulin Pen) NOVOLOG *MILD* ALGORI... Q6 SC Last administered on 08/13/16 12:04; Admin Dose 1 UNIT; Start 08/13/16 at 06:00 Procedures Procedures ECG demonstrates sinus rhythm at 75 bpm, poor R-wave progression, T-wave abnormalities lateral leads Alvin Song DO August 13, 2016 13:29
[2016-08-13] MEDS: AMLODIPINE 5 MG TAB PO SCH ×2 (14:28→20:02)
--- NOTE | 2016-08-13 17:58 | CONS ---
DATE OF ADMISSION: 08/12/2016 DATE OF CONSULTATION: TYPE OF CONSULTATION: Neurology Thank you, Dr. Wright, for your kind referral for evaluation of hand numbness. HISTORY OF PRESENT ILLNESS: The patient is a 56-year-old gentleman with extensive past medical history of coronary artery disease status post CABG, cardiomyopathy, hypertension, diabetes type 2, and dyslipidemia who presented with chest pain, worsening in the last 2 to 3 days. He also complains of exertional shortness of breath. He stated that 2 days ago, on Thursday, when he woke up, he noticed numbness in the 3rd to 5th fingers on the left, getting slightly better over time with some unpleasant tingling. He denies any weakness. No complaints of headache, diplopia, dysarthria, dysphasia. He does have numbness in the feet, especially on the left, for some time already. HOME MEDICATIONS: 1. Norvasc. 2. Coreg. 3. Clonidine. 4. Hydralazine. 5. Losartan. 6. Lovastatin. 7. Lovaza. 8. Aspirin. 9. Lexapro. 10. Lasix. 11. Metformin. 12. Multivitamins. ALLERGIES: NONE. SOCIAL HISTORY: Cigarette smoker about half pack per day for the last 30 years. No alcohol or drug use. FAMILY HISTORY: Noncontributory. CURRENT MEDICATIONS: 1. Lasix. 2. Lipitor. 3. Coreg. 4. Norvasc. 5. Aspirin. 6. Lexapro. 7. Heparin for DVT prevention. 8. Insulin sliding scale. 9. Fish oil. REVIEW OF SYSTEMS: All pertinent positives included in the above history of present illness. PHYSICAL EXAMINATION: VITAL SIGNS: Today temperature 98.0, pulse 68, respirations 20, blood pressure 122/59. GENERAL: Not in acute distress, lying in bed. HEENT: Normocephalic, atraumatic head. NECK: No carotid bruits. No thyromegaly. LUNGS: Clear to auscultation bilaterally. CARDIAC: Normal cardiac rhythm and sounds. ABDOMEN: Soft. EXTREMITIES: No cyanosis, clubbing, or edema. NEUROLOGIC: He is awake, alert, and oriented x3 with fluent speech. Cranial nerve examination shows intact visual sánchez bilaterally. Pupils reactive from 3 to 2 mm bilaterally. Extraocular movements intact without nystagmus. Symmetrical face. Preserved facial strength and sensation. Tongue is in midline. Palate elevates symmetrically. Motor strength examination seems to be preserved in all extremities. Normal bulk, strength, and tone. Sensory examination shows diminution of perception of pinprick in bilateral lower extremities, feet and forelegs, as well as bilateral hands but somewhat more so in the 3rd to 5th finger on the left. Deep tendon reflexes 2+ upper extremities , absent in lower extremities. Downgoing toes bilaterally. Coordination preserved on [id number] testing. No dysmetria or tremor. Gait was not assessed. The patient denied any problem ambulating. LABORATORY DATA: Anemia at 10.7 hemoglobin, 32.9 hematocrit, normal WBCs and platelets. BUN 21, creatinine 1.57. The rest of comprehensive metabolic panel within normal limits. Elevated BNP 2000. Normal TSH. Cholesterol 248, LDL 181. IMPRESSION: The patient with multiple risk factors for stroke such as poorly controlled diabetes, hemoglobin A1c of 7.6, history of coronary artery disease, dyslipidemia, and hypertension who presented with chest pain. Cardiac workup is underway. Special Ed Assistant is on the case. The patient stated that 3 days ago he woke up with numbness in the left hand, predominantly ulnar distribution 3rd to 5th fingers. I think that this is most likely ulnar mononeuropathy on top of his diabetic polyneuropathy. He could have slept with his arm bent causing appearance of symptoms of ulnar neuropathy, but given multiple risk factors for stroke, I think it is reasonable to obtain MRI of the brain just to make sure we are not dealing with a small maybe cortical stroke. Thank you very much for this interesting consultation. I will put the patient on small dose of Neurontin 100 three times a day to alleviate unpleasant sensation of the tingling. Thank you very much. Again, if no strokes on MRI, we could follow up in office within a couple of weeks. Dictated By: WES WALSH/RICH Conf#: [id number] DID#: [id number] TRE
--- NOTE | 2016-08-13 19:30 | RADRPT ---
Echocardiogram Report Patient Name: PILLO GIMENEZ Gender: Male Date: 1960 Study Date: 13-Aug-2016 Specimen Boss: GRETTA [facility] Location: 5541 Ref. Physician: CHRISTINA DREW Quality: Adequate Procedures: Transthoracic echocardiogram with complete 2D, M-Mode, and doppler examination. Indications: Congestive Heart Failure. 2D/M Mode Doppler Measurement Value Normal Ranges Measurement Value Normal Ranges LVIDd 2D 5.4 3.5 - 5.6 cm AV Peak Lester 2.3 m/sec LVIDs 2D 4.2 2.1 - 4.1 cm AV Peak PG 22.0 mmHg LVPWd 2D 1.5 0.6 - 1.1 cm AI Peak PG 60.8 mmHg IVSd 2D 1.6 0.6 - 1.1 cm AI Peak Lester 3.9 m/sec AoR Diam 2D 2.9 2.0 - 3.7 cm AI PHT 507.2 msec EDV 2D 140.2 cm3 LVOT Peak Lester 1.1 m/sec ESV 2D 73.4 cm3 LVOT Peak PG 4.7 mmHg LA Dimen 2D 5.0 2.3 - 4.0 cm MV E Peak Lester 1.2 m/sec MV A Peak Lester 0.9 m/sec MV E/A 1.3 MV Decel Time 185 msec MV Decel [place] 7 MV E/A 1.3 Findings Left Ventricle: Normal left ventricular systolic function. Normal left ventricular cavity size. Moderate concentric left ventricular hypertrophy. Ejection fraction is visually estimated at 55 %. Tissue Doppler/Mitral Doppler indices are consistent with pseudonormalization with mildly elevated left atrial pressure (Stage II diastolic dysfunction). Right Ventricle: Normal right ventricular size. Normal right ventricular systolic function. Left Atrium: There is moderate enlargement of left atrium. Right Atrium: The right atrium is normal in size. Mitral Valve: Mitral valve leaflets appear mildly thickened. Mild mitral annular calcification. Mild mitral valve regurgitation. Aortic Valve: Aortic sclerosis without stenosis. Mild aortic valve regurgitation. Tricuspid Valve: Normal appearance and function of the tricuspid valve with trace physiologic regurgitation. Pulmonic Valve: Pulmonic valve not well visualized. There is trace pulmonic regurgitation. Pericardium: Normal pericardium with no significant pericardial effusion. Aorta: Normal aortic root. IVC: Normal size and normal respiratory collapse consistent with normal right atrial pressure. Conclusions Normal left ventricular systolic function. Normal left ventricular cavity size. Moderate concentric left ventricular hypertrophy. Ejection fraction is visually estimated at 55 %. Tissue Doppler/Mitral Doppler indices are consistent with pseudonormalization with mildly elevated left atrial pressure (Stage II diastolic dysfunction). Normal right ventricular size. Normal right ventricular systolic function. There is moderate enlargement of left atrium. The right atrium is normal in size. Mild mitral valve regurgitation. Aortic sclerosis without stenosis. Mild aortic valve regurgitation. Normal pericardium with no significant pericardial effusion. Electronically Signed By: Alvin Song 13-Aug-2016 19:30:05 -0700 Patient Name: PILLO GIMENEZ Study Date: 13-Aug-[id number]
[2016-08-13] MEDS: GABAPENTIN 100 MG CAP PO SCH (20:02)
[2016-08-13] MEDS ORDERED: ATORVASTATIN 40 MG TAB PO SCH (21:00)
--- NOTE | 2016-08-13 21:51 | RADRPT ---
PROCEDURE: MR Brain without contrast. CLINICAL INDICATION: Weakness. Chest pain. TECHNIQUE: MRI brain without contrast was performed. Examination was performed on the high field MRI with the following sequences: Coronal gradient echo, sagittal T1-weighted, sagittal FLAIR image s, fast spin echo axial T2-weighted, axial FLAIR, axial diffusion-weighted images, and axial ADC map images. COMPARISON: None available FINDINGS: The ventricles and sulci are symmetric and normal. The avila-white matter differentiation is preserv ed. No abnormal intra-axial or extra-axial fluid collection or mass lesion is identified. No hemor rhage or midline shift is seen. The clivus, sella turcica, corpus callosum, and midline structures are all unremarkable. The brainstem and posterior fossa structures are unremarkable. The cerebellop ontine angle regions are clear. No skull base abnormality is seen. The diffusion weighted images demonstrate no region of restricted diffusion to suggest acute infarct. The surrounding bony calvarium and soft tissue scalp is unremarkable. The orbits, as visualized, ar e unremarkable. There is mild mucosal thickening in the left maxillary sinus, sphenoid sinuses, and left ethmoid sinuses. The paranasal sinuses are otherwise normal. IMPRESSION: 1. No evidence of acute infarct. 2. Mild left-sided sinus disease. 3. Otherwise normal noncontrast MRI of the brain. RPTAT: QQ .Ayo Espinoza MD, Date Time Electronically viewed and signed by .Ayo Espinoza MD, on 08/13/2016 21:50 .R/
[2016-08-13] MEDS: LEVOFLOXACIN 750MG/D5W (PMX) 150 ML IVPB SCH (22:05)
[2016-08-14] VITALS (10 sets, daily range): BP systolic 114–172; BP diastolic 58–79; PULSE 62–73; RESP 17–20
[2016-08-14] MEDS: INSULIN ASPART [NOVOLOG] 3 ML PEN SC SCH ×3 (05:35→17:14)
[2016-08-14] MEDS: ASPIRIN (EC) 325 MG TAB PO SCH ×2 (08:17→09:46)
[2016-08-14] MEDS: AMLODIPINE 5 MG TAB PO SCH ×2 (08:18→09:46)
[2016-08-14] MEDS: FISH OIL 1,000 MG CAP PO SCH ×2 (08:18→09:45)
[2016-08-14] MEDS: HEPARIN 5,000 UNIT/0.5 ML VIAL SC SCH ×2 (08:18→09:47)
[2016-08-14] MEDS: FAMOTIDINE 20 MG TAB PO SCH ×2 (08:18→09:46)
[2016-08-14] MEDS: GABAPENTIN 100 MG CAP PO SCH ×3 (08:18→12:13)
[2016-08-14] MEDS: MULTIVITAMINS THERAPEUTIC TAB PO SCH ×2 (08:18→09:46)
[2016-08-14] MEDS: ESCITALOPRAM 10 MG TAB PO SCH ×2 (08:18→09:46)
[2016-08-14] MEDS: NICOTINE (14 MG/24 HR) PATCH TRANSDERM SCH ×2 (08:18→09:53)
[2016-08-14] MEDS: FUROSEMIDE 20 MG TAB PO SCH ×2 (08:18→09:46)
[2016-08-14 11:05] LABS: ADD SCAN DIFF NO
[2016-08-14 11:17] LABS: BASOPHIL # 0.1 10^3/ul (0.0-0.1); BASOPHILS % 0.6 % (0.0-2.0); EOSINOPHILS # 0.3 10^3/ul (0.0-0.5); EOSINOPHILS % 3.4 % (0.0-7.0); HEMATOCRIT 33.9 % (42.0-52.0); LYMPHOCYTES % 25.7 % (15.0-51.0); MEAN CORPUSCULAR HEMOGLOBIN 25.6 pg (29.0-33.0); MEAN CORPUSCULAR HGB CONC 32.4 g/dl (32.0-37.0); MEAN CORPUSCULAR VOLUME 78.8 fl (82.0-101.0); MEAN PLATELET VOLUME 12.1 fl (7.4-10.4); MONOCYTE # 0.8 10^3/ul (0.3-0.9); MONOCYTES % 9.6 % (0.0-11.0); NEUTROPHIL # 4.8 10^3/ul (1.6-7.5); NEUTROPHILS % 60.3 % (39.0-77.0); PLATELET COUNT 240 10^3/UL (140-415); RED CELL DISTRIBUTION WIDTH 14.5 % (11.5-14.5); WHITE BLOOD COUNT 7.9 10^3/ul (4.8-10.8)
[2016-08-14 11:22] LABS: POTASSIUM 4.2 mmol/L (3.5-5.1)
[2016-08-14 11:24] LABS: CREATININE 1.61 mg/dl (0.61-1.24)
[2016-08-14 11:25] LABS: CALCIUM 8.9 mg/dl (8.4-10.2)
--- NOTE | 2016-08-14 14:25 | PN ---
Date/Time of Note Date/Time of Note DATE: 08/14/16 TIME: 14:08 Assessment/Plan VTE Prophylaxis VTE Prophylaxis Intervention: heparin Lines/Catheters IV [facility]ter Type [facility]from [facility]): [facility] Urinary Cath still in place: No Assessment/Plan Chief Complaint/Hosp Course ASSESSMENT AND PLAN: 56-year-old male coming in with chest pain symptoms, shortness of breath, signs of rule out acute coronary syndrome plus CHF exacerbation. 1. Shortness of breath and chest pain - pt with Hx of CABG - Has ruled out for acute coronary syndrome. - Aspirin, morphine, oxygen, nitrates. - f/u echocardiogram as well. - Continue current bp meds, improved - Elevate head of the bed greater than 30 degrees. - Monitor ins and outs 2. Type 2 diabetes - f/u A1c, sliding scale insulin. 3. Smoking history - nicotine patch, program counselor regarding tobacco cessation. 4. Essential hypertension. See #1. 5. Gastrointestinal prophylaxis. H2 silvia. 6. Deep venous thrombosis prophylaxis. Heparin subcutaneously. 7. Left hand numbness - MRI brain neg for TIA/CVA. 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 - continue gabapentin Problems: Subjective 24 Hr Interval Summary Free Text/Dictation No acute events overnight, seen by Neuro team, asking when he can go home. Exam/Review of Systems Vital Signs Vitals Vital Signs Date Time Temp Pulse Resp B/P Pulse Ox O2 Delivery O2 Flow Rate FiO2 08/14/16 12:25 97.3 70 20 152/72 98 08/14/16 01:30 2.0 08/13/16 08:20 Nasal Cannula Intake and Output 08/13/16 08/13/16 08/14/16 15:00 23:00 07:00 Intake Total 950 ml 600 ml Output Total 300 ml 700 ml Balance 650 ml -100 ml Exam GENERAL: The patient lying in bed, appears somewhat lethargic but alert, answering questions. HEENT: Pupils equal, round, react to light. Extraocular muscles intact. NECK: Supple. No thyromegaly. LUNGS: Bibasilar crackles heard at the bases bilaterally. CARDIOVASCULAR: S1, S2 heard. No rubs or gallops. ABDOMEN: Soft, nontender, nondistended. Normal bowel sounds. No rebound or guarding. MUSCULOSKELETAL: 1+ pitting edema, bilateral lower extremities to the mid calves. NEUROLOGIC: No focal deficits. Results Result Diagram: 08/14/16 1047 08/14/16 1040 Results 24 hrs Laboratory Tests Test 08/13/16 17:16 08/13/16 23:24 08/14/16 05:34 08/14/16 10:40 Bedside Glucose 173 338 H 166 Sodium Level 134 L Potassium Level 4.2 Chloride Level 98 Carbon Dioxide Level 25 Anion Gap 15 Blood Urea Nitrogen 24 H Creatinine 1.61 H Glucose Level 240 #H Calcium Level 8.9 Test 08/14/16 10:47 08/14/16 12:12 White Blood Count 7.9 Red Blood Count 4.30 L Hemoglobin 11.0 L Hematocrit 33.9 L Mean Corpuscular Volume 78.8 L Mean Corpuscular Hemoglobin 25.6 L Mean Corpuscular Hemoglobin Concent 32.4 Red Cell Distribution Width 14.5 Platelet Count 240 Mean Platelet Volume 12.1 H Neutrophils % 60.3 Lymphocytes % 25.7 Monocytes % 9.6 Eosinophils % 3.4 Basophils % 0.6 Nucleated Red Blood Cells % 0.0 Neutrophils # 4.8 Lymphocytes # 2.0 Monocytes # 0.8 Eosinophils # 0.3 Basophils # 0.1 Nucleated Red Blood Cells # 0.0 Bedside Glucose 196 Medications Medications Current Medications Ondansetron HCl (Zofran Inj) 4 mg Q6H PRN IV NAUSEA AND/OR VOMITING; Start 08/12 at 18:30 Acetaminophen (Tylenol Tab) 650 mg Q6H PRN PO PAIN LEVEL 1-3 OR FEVER; Start at 18:30 Acetaminophen/ Hydrocodone Bitart ([place] (5/325)) 1 tab Q6H PRN PO MODERATE PAIN LEVEL 4-6; Start 08/12/16 at 18:30 Morphine Sulfate (morphine) 2 mg Q4H PRN IV SEVERE PAIN LEVEL 7-10 Last administered on 08/12/16 21:44; Admin Dose 2 MG; Start 08/12/16 at 18:30 Docusate Sodium (Colace) 100 mg Q12H PRN PO CONSTIPATION; Start 08/12/16 at 18: 30 Magnesium Hydroxide (Milk Of Mag) 30 ml DAILY PRN PO CONSTIPATION Last administered on 08/13/16 20:02; Admin Dose 30 ML; Start 08/12/16 at 18:30 Sodium Biphosphate/ Sodium Phosphate (Fleet Enema) 133 ml DAILY PRN OR CONSTIPATION; Start 08/12/16 at 18:30 Famotidine (Pepcid) 20 mg Q12 PO Last administered on 08/14/16 09:46; Admin Dose 20 MG; Start 08/12/16 at 21:00 Heparin Sodium (Porcine) (Heparin (5000 Units/0.5 ml)) 5,000 unit Q12 SC Last administered on 08/14/16 09:47; Admin Dose 5,000 UNIT; Start 08/12/16 at 21:00 Lorazepam 0.5 mg 0.5 mg Q6H PRN IV ANXIETY; Start 08/12/16 at 18:30 Levofloxacin/ Dextrose (Levaquin 750 Mg/ D5W 150 ml (Pmx)) 150 ml @ 100 mls/hr Q24H IVPB Last administered on 08/13/16 22:05; Admin Dose 100 MLS/HR; Start at 20:00 Hydralazine HCl (Apresoline) 10 mg Q6H PRN IV ELEVATED BLOOD PRESSURE Last administered on 08/12/16 20:21; Admin Dose 10 MG; Start 08/12/16 at 18:30 Clonidine (Catapres) 0.1 mg Q6H PRN PO ELEVATED BLOOD PRESSURE Last administered on 08/14/16 01:33; Admin Dose 0.1 MG; Start 08/12/16 at 18:30 Nitroglycerin (Nitroglycerin (Sl Tab) 0.4 Mg) 1 tab Q5M PRN SL ANGINA; Start at 18:30 Aspirin (Ecotrin) 325 mg DAILY PO Last administered on 08/14/16 09:46; Admin Dose 325 MG; Start 08/13/16 at 09:00 Escitalopram Oxalate (Lexapro) 20 mg DAILY PO Last administered on 08/14/16 09 :46; Admin Dose 20 MG; Start 08/13/16 at 09:00 Multivitamins Therapeutic (Theragran) 1 tab DAILY PO Last administered on 09:46; Admin Dose 1 TAB; Start 08/13/16 at 09:00 Fish Oil (Fish Oil) 2,000 mg BID PO Last administered on 08/14/16 09:45; Admin Dose 2,000 MG; Start 08/12/16 at 21:00 Miscellaneous Information 1 ea NOTE XX ; Start 08/12/16 at 19:00 Glucose (Glutose) 15 gm Q15M PRN PO DECREASED GLUCOSE; Start 08/12/16 at 19:00 Glucose (Glutose) 22.5 gm Q15M PRN PO DECREASED GLUCOSE; Start 08/12/16 at 19:00 Dextrose (D50w Syringe) 25 ml Q15M PRN IV DECREASED GLUCOSE; Start 08/12/16 at 19:00 Dextrose (D50w Syringe) 50 ml Q15M PRN IV DECREASED GLUCOSE; Start 08/12/16 at 19:00 Glucagon (Glucagen) 1 mg Q15M PRN IM DECREASED GLUCOSE; Start 08/12/16 at 19:00 Glucose (Glutose) 15 gm Q15M PRN BUCCAL DECREASED GLUCOSE; Start 08/12/16 at 19: 00 Nicotine (Nicoderm 14 Mg/ 24hr) 1 patch DAILY TRANSDERM Last administered on 09:53; Admin Dose 1 PATCH; Start 08/12/16 at 19:00 Insulin Aspart (Novolog Insulin Pen) NOVOLOG *MILD* ALGORI... Q6 SC Last administered on 08/14/16 12:16; Admin Dose 2 UNIT; Start 08/13/16 at 06:00 Atorvastatin Calcium (Lipitor) 40 mg HS PO Last administered on 08/13/16 20:02 ; Admin Dose 40 MG; Start 08/13/16 at 21:00 Carvedilol (Coreg) 6.25 mg BID PO Last administered on 08/14/16 09:46; Admin Dose 6.25 MG; Start 08/13/16 at 21:00 Amlodipine Besylate (Norvasc) 5 mg BID PO Last administered on 08/14/16 09:46 ; Admin Dose 5 MG; Start 08/13/16 at 13:30 Furosemide (Lasix) 20 mg DAILY PO Last administered on 08/14/16 09:46; Admin Dose 20 MG; Start 08/14/16 at 09:00 Gabapentin (Neurontin) 100 mg TID PO Last administered on 08/14/16 12:13; Admin Dose 100 MG; Start 08/13/16 at 21:00 CHRISTINA DREW August 14, 2016 14:19
--- NOTE | 2016-08-14 16:15 | CONS ---
Date/Time of Note Date/Time of Note DATE: 08/14/16 TIME: 16:14 Assessment/Plan Assessment/Plan Additional Assessment/Plan Chest wall pain Left arm numbness Hypertension, uncontrolled Coronary artery disease with history of CABG Preserved ejection fraction -Patient with improvement in blood pressure on current medication regimen. Last needed as needed clonidine at 1 AM. ELIZABETH inhibitor on hold secondary to worsening renal function likely secondary to overdiuresis. Echocardiogram with improved ejection fraction. His chest discomfort is exacerbated by arm movements and his left hand numbness is improving. No further inpatient cardiac workup needed at the current time. DC planning Consultation Date/Type/Reason Admit Date/Time August 12, 2016 at 16:14 Initial Consult Date Type of Consultation: cv 24 HR Interval Summary Free Text/Dictation Patient denies any shortness of breath. Still complaining of chest wall pain with arm movements. Overall feeling better Exam/Review of Systems Vital Signs Vitals Vital Signs Date Time Temp Pulse Resp B/P Pulse Ox O2 Delivery O2 Flow Rate FiO2 08/14/16 16:08 63 08/14/16 15:50 97.7 20 148/66 93 08/14/16 01:30 2.0 08/13/16 08:20 Nasal Cannula Intake and Output 08/13/16 08/13/16 08/14/16 15:00 23:00 07:00 Intake Total 950 ml 600 ml Output Total 300 ml 700 ml Balance 650 ml -100 ml Exam No apparent distress, family at bedside Constitutional: alert, oriented Head: normocephalic Neck: supple Respiratory: clear to auscultation, normal air movement Cardiovascular: other (S1-S2 heard), regular rate and rhythm Gastrointestinal: bowel sounds, non-tender, other (No guarding), soft Extremities: other (No edema) Results Result Diagram: 08/14/16 1047 08/14/16 1040 Results 24 hrs Laboratory Tests Test 08/13/16 17:16 08/13/16 23:24 08/14/16 05:34 08/14/16 10:40 Bedside Glucose 173 338 H 166 Sodium Level 134 L Potassium Level 4.2 Chloride Level 98 Carbon Dioxide Level 25 Anion Gap 15 Blood Urea Nitrogen 24 H Creatinine 1.61 H Glucose Level 240 #H Calcium Level 8.9 Test 08/14/16 10:47 08/14/16 12:12 White Blood Count 7.9 Red Blood Count 4.30 L Hemoglobin 11.0 L Hematocrit 33.9 L Mean Corpuscular Volume 78.8 L Mean Corpuscular Hemoglobin 25.6 L Mean Corpuscular Hemoglobin Concent 32.4 Red Cell Distribution Width 14.5 Platelet Count 240 Mean Platelet Volume 12.1 H Neutrophils % 60.3 Lymphocytes % 25.7 Monocytes % 9.6 Eosinophils % 3.4 Basophils % 0.6 Nucleated Red Blood Cells % 0.0 Neutrophils # 4.8 Lymphocytes # 2.0 Monocytes # 0.8 Eosinophils # 0.3 Basophils # 0.1 Nucleated Red Blood Cells # 0.0 Bedside Glucose 196 Medications Medications Current Medications Ondansetron HCl (Zofran Inj) 4 mg Q6H PRN IV NAUSEA AND/OR VOMITING; Start 08/12 at 18:30 Acetaminophen (Tylenol Tab) 650 mg Q6H PRN PO PAIN LEVEL 1-3 OR FEVER; Start at 18:30 Acetaminophen/ Hydrocodone Bitart ([place] (5/325)) 1 tab Q6H PRN PO MODERATE PAIN LEVEL 4-6; Start 08/12/16 at 18:30 Morphine Sulfate (morphine) 2 mg Q4H PRN IV SEVERE PAIN LEVEL 7-10 Last administered on 08/12/16 21:44; Admin Dose 2 MG; Start 08/12/16 at 18:30 Docusate Sodium (Colace) 100 mg Q12H PRN PO CONSTIPATION; Start 08/12/16 at 18: 30 Magnesium Hydroxide (Milk Of Mag) 30 ml DAILY PRN PO CONSTIPATION Last administered on 08/13/16 20:02; Admin Dose 30 ML; Start 08/12/16 at 18:30 Sodium Biphosphate/ Sodium Phosphate (Fleet Enema) 133 ml DAILY PRN SD CONSTIPATION; Start 08/12/16 at 18:30 Famotidine (Pepcid) 20 mg Q12 PO Last administered on 08/14/16 09:46; Admin Dose 20 MG; Start 08/12/16 at 21:00 Heparin Sodium (Porcine) (Heparin (5000 Units/0.5 ml)) 5,000 unit Q12 SC Last administered on 08/14/16 09:47; Admin Dose 5,000 UNIT; Start 08/12/16 at 21:00 Lorazepam 0.5 mg 0.5 mg Q6H PRN IV ANXIETY; Start 08/12/16 at 18:30 Levofloxacin/ Dextrose (Levaquin 750 Mg/ D5W 150 ml (Pmx)) 150 ml @ 100 mls/hr Q24H IVPB Last administered on 08/13/16 22:05; Admin Dose 100 MLS/HR; Start at 20:00 Hydralazine HCl (Apresoline) 10 mg Q6H PRN IV ELEVATED BLOOD PRESSURE Last administered on 08/12/16 20:21; Admin Dose 10 MG; Start 08/12/16 at 18:30 Clonidine (Catapres) 0.1 mg Q6H PRN PO ELEVATED BLOOD PRESSURE Last administered on 08/14/16 01:33; Admin Dose 0.1 MG; Start 08/12/16 at 18:30 Nitroglycerin (Nitroglycerin (Sl Tab) 0.4 Mg) 1 tab Q5M PRN SL ANGINA; Start at 18:30 Aspirin (Ecotrin) 325 mg DAILY PO Last administered on 08/14/16 09:46; Admin Dose 325 MG; Start 08/13/16 at 09:00 Escitalopram Oxalate (Lexapro) 20 mg DAILY PO Last administered on 08/14/16 09 :46; Admin Dose 20 MG; Start 08/13/16 at 09:00 Multivitamins Therapeutic (Theragran) 1 tab DAILY PO Last administered on 09:46; Admin Dose 1 TAB; Start 08/13/16 at 09:00 Fish Oil (Fish Oil) 2,000 mg BID PO Last administered on 08/14/16 09:45; Admin Dose 2,000 MG; Start 08/12/16 at 21:00 Miscellaneous Information 1 ea NOTE XX ; Start 08/12/16 at 19:00 Glucose (Glutose) 15 gm Q15M PRN PO DECREASED GLUCOSE; Start 08/12/16 at 19:00 Glucose (Glutose) 22.5 gm Q15M PRN PO DECREASED GLUCOSE; Start 08/12/16 at 19:00 Dextrose (D50w Syringe) 25 ml Q15M PRN IV DECREASED GLUCOSE; Start 08/12/16 at 19:00 Dextrose (D50w Syringe) 50 ml Q15M PRN IV DECREASED GLUCOSE; Start 08/12/16 at 19:00 Glucagon (Glucagen) 1 mg Q15M PRN IM DECREASED GLUCOSE; Start 08/12/16 at 19:00 Glucose (Glutose) 15 gm Q15M PRN BUCCAL DECREASED GLUCOSE; Start 08/12/16 at 19: 00 Nicotine (Nicoderm 14 Mg/ 24hr) 1 patch DAILY TRANSDERM Last administered on 09:53; Admin Dose 1 PATCH; Start 08/12/16 at 19:00 Insulin Aspart (Novolog Insulin Pen) NOVOLOG *MILD* ALGORI... Q6 SC Last administered on 08/14/16 12:16; Admin Dose 2 UNIT; Start 08/13/16 at 06:00 Atorvastatin Calcium (Lipitor) 40 mg HS PO Last administered on 08/13/16 20:02 ; Admin Dose 40 MG; Start 08/13/16 at 21:00 Carvedilol (Coreg) 6.25 mg BID PO Last administered on 08/14/16 09:46; Admin Dose 6.25 MG; Start 08/13/16 at 21:00 Amlodipine Besylate (Norvasc) 5 mg BID PO Last administered on 08/14/16 09:46 ; Admin Dose 5 MG; Start 08/13/16 at 13:30 Furosemide (Lasix) 20 mg DAILY PO Last administered on 08/14/16 09:46; Admin Dose 20 MG; Start 08/14/16 at 09:00 Gabapentin (Neurontin) 100 mg TID PO Last administered on 08/14/16 12:13; Admin Dose 100 MG; Start 08/13/16 at 21:00 Alvin Song DO August 14, 2016 16:15
--- NOTE | 2016-08-14 17:21 | PDOCDIS ---
Discharge Instructions CONDITION Patient Condition: Stable HOME CARE INSTRUCTIONS: Diet Instructions: Low Fat /Cholesterol ACTIVITY: Activity Restrictions: Slowly Increase Activity FOLLOW UP/APPOINTMENTS Appointments Please take your medications, see your doctor in the clinic in 1 week. CHRISTINA DREW August 14, 2016 17:21
[2016-08-14] MEDS ORDERED: Nicotine (14 Mg/24 Hr) TRANSDERM (17:26)
[2016-08-14] MEDS ORDERED: OMEG1CAP2 PO (17:26)
[2016-08-14] MEDS ORDERED: FAMO20TA18 PO (17:26)
[2016-08-14] MEDS ORDERED: GABA100C14 PO (17:26)
[2016-08-14] MEDS ORDERED: AMLO5TAB4 PO (17:26)
[2016-08-14] MEDS ORDERED: ASPI81TA3 PO (17:26)
[2016-08-14] MEDS ORDERED: METF-480 PO (17:26)
[2016-08-14] MEDS ORDERED: LOSA50TA6 PO (17:26)
[2016-08-14] MEDS ORDERED: LAS20 PO (17:26)
[2016-08-14] MEDS ORDERED: ESCI20TA38 PO (17:26)
[2016-08-14] MEDS ORDERED: HYDR100T7 PO (17:26)
[2016-08-14] MEDS ORDERED: CARV6.2579 PO (17:26)
--- NOTE | 2016-08-14 17:45 | DS ---
DATE OF ADMISSION: 08/12/2016 DATE OF DISCHARGE: 08/14/2016 HOSPITAL COURSE: This is a 56-year-old male originally admitted on 08/12/2016 being discharged home 08/14/2016. The patient came in with chest pain symptoms, has a prior history of coronary artery d isease with CABG in the past, who was admitted to telemetry floor, seen by cardiology team and ruled out for acute coronary syndrome. He had some high blood pressure as well as blood pressure medicin es were titrated as well. He was given a nicotine patch for smoking cessation as well. Over the co urse of hospitalization, chest pain symptoms improved, he is able to ambulate and tolerate a p.o. di et. His echocardiogram showed the following: He had an ejection fraction of 55%. There was normal left ventricular systolic function, normal left ventricular cavity size, moderate concentric left v entricular hypertrophy. There was some stage II diastolic dysfunction, moderate enlargement of left atrium. The right atrium is normal in size. There was some aortic sclerosis without stenosis and mild aortic valve regurg. Again, patient also was seen by neurology team because there were concern s of left hand numbness. He ruled out for acute stroke and MRI of the brain was negative. It was t hought that he had ulnar mononeuropathy on top of the diabetic polyneuropathy. He was placed on rafal apentin for that. Patient will be discharged home today in improved condition. DISCHARGE MEDICATIONS: He will be sent home with the following medications: 1. Famotidine 20 mg q.12 hours. 2. Lasix 20 mg daily. 3. Gabapentin 100 mg t.i.d. 4. Nicotine patch daily 14 mg. 5. Norvasc 5 mg daily. 6. Aspirin 81 mg daily. 7. Coreg 6.25 mg daily. 8. Lexapro 20 mg daily. 9. Hydralazine 100 mg q.8 hours. 10. Losartan 50 mg daily. 11. Lovastatin 40 mg at bedtime. 12. Metformin 850 mg b.i.d. 13. Multivitamin 1 tab daily. 14. Lovaza 2 grams p.o. b.i.d. FOLLOWUP: Primary care doctor in the clinic in the next 1 to 2 weeks. FINAL DIAGNOSES: 1. Chest pain, ruled out for acute coronary syndrome. 2. History of coronary artery disease status post coronary artery bypass graft in the past. 3. Smoking history. Counseled smoking cessation. 4. High cholesterol. 5. Essential hypertension. 6. Type 2 diabetes. 7. History of coronary artery bypass graft in the past. 8. Left hand numbness secondary to ulnar mononeuropathy. 9. Diabetic polyneuropathy. Time spent with patient: Fifty minutes. Dictated By: CHRISTINA OSMAN Conf#: [id number] DID#: [id number]
== END 2016-08-14 18:30 | disposition home or self-care (01) | DRG 313 ==
LOC: E/R 13:57 → MS4 16:14
PROVIDERS: ADMIT Hospitalist; ATTEND Hospitalist
DX: R07.89 Other chest pain (principal); I25.10 Atherosclerotic heart disease of native coronary artery without angina pectoris; I11.0 Hypertensive heart disease with heart failure; E11.42 Type 2 diabetes mellitus with diabetic polyneuropathy; I50.30 Unspecified diastolic (congestive) heart failure; Z95.1 Presence of aortocoronary bypass graft; Z72.0 Tobacco use; E11.9 Type 2 diabetes mellitus without complications; R07.9 Chest pain, unspecified; E78.00 Pure hypercholesterolemia, unspecified; G89.29 Other chronic pain; G58.9 Mononeuropathy, unspecified
CPT/HCPCS: 36415; 70551; 71010; 80048; 80053; 80061; 82550; 82553; 82962; 83036; 83690; 83735; 83880; 84100; 84439; 84443; 84484; 85025; 85610; 85730; 93005; 93306; 96365; 96375; 97162; J0360; J1644; J1815; J1940; J1956; J2270